=== PATIENT | female | born 1970 | race Caucasian/White ===

== ENCOUNTER 2018-07-31 08:06 | Day surgery (SDC) | payer OTHER ==
[~2018-07-31 08:06] MED LIST: CEFAZOLIN 1 GM INJ; CEFAZOLIN 1 GM/50 ML (PMX) 50 ML IVPB; DEXAMETHASONE 4 MG/ML 1 ML INJ; ONDANSETRON 4 MG INJ; SOD CHLORIDE 0.9% 1,000 ML IV; SUCCINYLCHOLINE CHLORIDE 100 MG/5 ML SYG IV
[2018-07-31] MEDS ORDERED: LABETALOL HCL 20MG INJ IV (13:30)
[2018-07-31] MEDS ORDERED: HYDROmorphONE 1 MG/5 ML IV SYRINGE IV ×2 (13:30)
[2018-07-31] MEDS ORDERED: hydrALAzine 20 MG INJ IV (13:30)
[2018-07-31] MEDS ORDERED: ONDANSETRON 4 MG INJ IV (13:30)
[2018-07-31] MEDS ORDERED: OXYCODONE/ACETAMINOPHEN (5/325) TAB PO ×2 (13:30)
[2018-07-31] MEDS ORDERED: FENTAnyl 50 MCG/ML VIAL IV ×2 (13:30)
[2018-07-31] MEDS ORDERED: DIPHENHYDRAMINE 50 MG INJ IV (13:30)
[2018-07-31] MEDS ORDERED: EPHEDrine SULFATE 50 MG/5 ML SYG IV (13:30)
[2018-07-31] MEDS ORDERED: MEPERIDINE 25 MG INJ IV (13:30)
[2018-07-31] MEDS ORDERED: ATROPINE 1 MG/10 ML SYRINGE IV (13:30)
[2018-07-31] MEDS ORDERED: morphine (1 MG/ML) 10ML SYRINGE IV ×3 (13:30)
[2018-07-31] MEDS ORDERED: MIDAZOLAM 1 MG/ML 2 ML INJ IV (13:30)
[2018-07-31] MEDS ORDERED: NEOSTIGMINE 3 MG/3 ML SYRINGE (13:34)
[2018-07-31] MEDS ORDERED: PROPOFOL 20 ML (13:34)
[2018-07-31] MEDS ORDERED: MIDAZOLAM 1 MG/ML 2 ML INJ (13:34)
[2018-07-31] MEDS ORDERED: FENTAnyl 50 MCG/ML VIAL (13:34)
[2018-07-31] MEDS ORDERED: GLYCOPYRROLATE 0.4 MG INJ (13:34)
[2018-07-31] MEDS ORDERED: ROCURONIUM 50 MG INJ (13:34)
[2018-07-31] MEDS ORDERED: LIDOCAINE 2% (SDV) 5 ML INJ (13:34)
[2018-07-31] MEDS ORDERED: HYDROCODONE/APAP (7.5/325) TAB PO (15:00)
[2018-07-31] MEDS: HYDROmorphONE 1 MG/5 ML IV SYRINGE IV (15:00)
== END 2018-07-31 17:00 | disposition home or self-care (01) ==
LOC: SDS 08:06
DX: N60.91 Unspecified benign mammary dysplasia of right breast (principal)
CPT/HCPCS: 19301; 88307